=== PATIENT | female | born 1960 ===

== ENCOUNTER 2020-06-15 16:46 | Emergency (ER) | payer OTHER ==
[~2020-06-15] VITALS: Ht 160 cm; Wt 72.6 kg
[~2020-06-15 16:46] MED LIST: CALTRATE 600+D1 EAC1 PO; CEFUROXIME500 MG PO; KETO10TA2 PO; PREMARIN0.45 MG; PREMARIN0.45 MG PO; SKELAXIN800 MG PO; SYNTHROID100 MCG; SYNTHROID100 MCG PO; SYNTHROID88 MCG PO; ULTRACET PO; VISTARIL50 MG PO; VITAMIN D3250 MCG PO
== END 2020-06-15 20:58 | disposition home or self-care (01) ==
LOC: ER 16:46
DX: S13.4XXA Sprain of ligaments of cervical spine, initial encounter (principal); V49.9XXA Car occupant (driver) (passenger) injured in unspecified traffic accident, initial encounter; Y93.89 Activity, other specified; Y92.488 Other paved roadways as the place of occurrence of the external cause; Y99.8 Other external cause status

== ENCOUNTER 2020-07-15 08:26 | Outpatient (CLI) | payer OTHER | END 2020-07-15 08:39 | disposition home or self-care (01) | LOC: RX STUDY 08:26 | PROVIDERS: ATTEND Otolaryngology | DX: R13.10 Dysphagia, unspecified (principal) ==

== ENCOUNTER 2021-05-21 11:49 | Emergency (ER) | payer OTHER ==
[~2021-05-21] VITALS: Ht 152.4 cm; Wt 64.0 kg
== END 2021-05-21 14:30 | disposition home or self-care (01) ==
LOC: ER 11:49
DX: S13.9XXA Sprain of joints and ligaments of unspecified parts of neck, initial encounter (principal); X58.XXXA Exposure to other specified factors, initial encounter; Y93.9 Activity, unspecified; Y92.9 Unspecified place or not applicable; Z88.8 Allergy status to other drugs, medicaments and biological substances; Z91.018 Allergy to other foods